=== PATIENT | female | born 1970 | race Caucasian/White ===

== ENCOUNTER 2024-08-02 11:00 | Emergency (ER) | payer OTHER ==
[2024-08-02] MEDS ORDERED: EPINEPHrine 1 MG/1 ML Amp ONE ×14 (11:02→14:29)
[2024-08-02] MEDS ORDERED: Sodium Chloride 0.9% 1,000 ML IV ONE ×5 (11:05→12:03)
[2024-08-02] MEDS ORDERED: Amiodarone/Dextrose,Iso-Osmotic 150 MG/100 ML Premix Bag IV ONE (11:06)
[2024-08-02] MEDS ORDERED: Sodium Bicarbonate 8.4% 50 MEQ/50 ML Syringe ONE ×2 (11:13→14:06)
[2024-08-02 11:32] LABS: BASOPHILS ABSOLUTE AUTO 0.1 K/mm3 (0.0-0.2); BASOPHILS PERCENT AUTO 0.5 % (0.0-1.0); EOSINOPHILS ABSOLUTE AUTO 0.1 K/mm3 (0.0-0.4); EOSINOPHILS PERCENT AUTO 0.5 % (0.0-6.0); HEMATOCRIT 37.8 % (37.0-47.0); HEMOGLOBIN 12.3 gm/dl (12.0-16.0); IMMATURE GRAN ABSOLUTE AUTO 0.35 K/mm3 (0.00-0.05); IMMATURE GRAN PERCENT AUTO 3.6 % (0.0-0.4); LYMPHOCYTES ABSOLUTE AUTO 4.7 K/mm3 (1.0-4.8); LYMPHOCYTES PERCENT AUTO 47.6 % (24.0-44.0); MEAN CORPUSCULAR HEMOGLOBIN 30.4 pg (28.0-32.0); MEAN CORPUSCULAR HGB CONC 32.5 g/dl (32.0-36.0); MEAN CORPUSCULAR VOLUME 93.6 fl (83.0-99.0); MEAN PLATELET VOLUME 9.5 fl (9.4-12.3); MONOCYTES ABSOLUTE AUTO 0.7 K/mm3 (0.0-0.8); MONOCYTES PERCENT AUTO 7.3 % (0.0-8.0); NEUTROPHILS PERCENT AUTO 40.5 % (41.0-71.0); NRBC ABSOLUTE 0.04 (0.00-0.02); NRBC PERCENT 0.4 % (0.0-0.2); PLATELET COUNT,PLT 180 K/mm3 (150-400); RED BLOOD CELL COUNT 4.04 M/mm3 (4.10-5.30); WHITE BLOOD CELL COUNT,WBC 9.81 K/mm3 (3.9-11.3)
[2024-08-02 11:36] LABS: APPEARANCE,URINE SLT CLOUDY (Clear); BILIRUBIN,URINE NEGATIVE (Negative); COLOR,URINE YELLOW (Yellow); GLUCOSE,URINE NEGATIVE (Negative); KETONES,URINE NEGATIVE (Negative); LEUKOCYTE ESTERASE,URINE NEGATIVE (Negative); NITRITE,URINE NEGATIVE (Negative); OCCULT BLOOD,URINE 1+ (Negative); PH,URINE 5.5 (5.0-8.0); PROTEIN,URINE 2+ (Negative); UROBILINOGEN,URINE 0.2 (0.2-1.0)
[2024-08-02 11:42] LABS: BARBITURATE SCREEN,URINE NEGATIVE (CUTOFF=200); BENZODIAZEPINES SCREEN,URINE PRESUMPTIVE POSITIVE (CUTOFF=150); BUPRENORPHINE SCREEN,URINE NEGATIVE (CUTOFF=10); METHADONE SCREEN, URINE PRESUMPTIVE POSITIVE (CUTOFF=200); METHAMPHETAMINES SCREEN, URINE PRESUMPTIVE POSITIVE (CUTOFF=500); OXYCODONE SCREEN,URINE PRESUMPTIVE POSITIVE (CUT0FF=100); THC SCREEN,URINE 20 NG/ML NEGATIVE (CUTOFF=50)
[2024-08-02 11:45] LABS: AMPHETAMINES SCREEN, URINE NEGATIVE (CUTOFF=500)
[2024-08-02 11:50] LABS: INR 1.21; PROTHROMBIN TIME 12.7 SECONDS (9.7-12.0)
[2024-08-02 11:51] LABS: PTT,PARTIAL THROMBOPLSTIN TIME 30.2 SECONDS (21.7-31.4)
[2024-08-02 11:53] LABS: BACTERIA,URINE FEW /hpf (FEW); RBC,URINE 0-5 /hpf (0-5)
[2024-08-02 11:54] LABS: MUCUS,URINE MODERATE /hpf (FEW)
[2024-08-02 11:58] LABS: A/G RATIO 1.3 (1-2); ALANINE AMINOTRANSFERASE,ALT 27 U/L (14-59); ALKALINE PHOSPHATASE 69 U/L (46-116); ANION GAP 8.5 (5-15); ASPARTATE AMNIOTRANSFERASE,AST 28 U/L (15-37); BILIRUBIN TOTAL 0.2 mg/dL (0.2-1.0); BLOOD UREA NITROGEN,BUN 11 mg/dL (7-18); BUN/CREATININE RATIO 9.2 (14-18); CALCIUM 8.5 mg/dL (8.5-10.1); CARBON DIOXIDE,CO2 33 mEq/L (21-32); CHLORIDE,CL 107 mEq/L (98-107); CREATININE 1.2 mg/dL (0.55-1.02); ESTIMATED GFR 54 mL/min (>60); GLUCOSE RANDOM 246 mg/dL (70-99); LIPASE 38 U/L (16-77); POTASSIUM,K 3.5 mEq/L (3.5-5.1); PROTEIN TOTAL,TP 5.4 g/dl (6.4-8.2); SODIUM,NA 145 mEq/L (136-145); TROPONIN I HIGH SENSITIVITY 6 pg/mL (<=51)
[2024-08-02 13:56] LABS: BASOPHILS ABSOLUTE AUTO 0.1 K/mm3 (0.0-0.2); BASOPHILS PERCENT AUTO 0.3 % (0.0-1.0); EOSINOPHILS ABSOLUTE AUTO 0.1 K/mm3 (0.0-0.4); EOSINOPHILS PERCENT AUTO 0.4 % (0.0-6.0); HEMATOCRIT 43.3 % (37.0-47.0); HEMOGLOBIN 13.5 gm/dl (12.0-16.0); IMMATURE GRAN ABSOLUTE AUTO 0.99 K/mm3 (0.00-0.05); IMMATURE GRAN PERCENT AUTO 5.6 % (0.0-0.4); LYMPHOCYTES ABSOLUTE AUTO 6.4 K/mm3 (1.0-4.8); LYMPHOCYTES PERCENT AUTO 36.6 % (24.0-44.0); MEAN CORPUSCULAR HEMOGLOBIN 30.6 pg (28.0-32.0); MEAN CORPUSCULAR HGB CONC 31.2 g/dl (32.0-36.0); MEAN CORPUSCULAR VOLUME 98.2 fl (83.0-99.0); MEAN PLATELET VOLUME 9.6 fl (9.4-12.3); MONOCYTES ABSOLUTE AUTO 0.8 K/mm3 (0.0-0.8); MONOCYTES PERCENT AUTO 4.8 % (0.0-8.0); NEUTROPHILS ABSOLUTE AUTO 9.2 K/mm3 (1.8-7.7); NEUTROPHILS PERCENT AUTO 52.3 % (41.0-71.0); NRBC ABSOLUTE 0.04 (0.00-0.02); NRBC PERCENT 0.2 % (0.0-0.2); PLATELET COUNT,PLT 114 K/mm3 (150-400); RED BLOOD CELL COUNT 4.41 M/mm3 (4.10-5.30); WHITE BLOOD CELL COUNT,WBC 17.59 K/mm3 (3.9-11.3)
[2024-08-02] MEDS ORDERED: Naloxone 0.4 MG/ML SDV ONE (13:57)
[2024-08-02 14:21] LABS: SLIDE REVIEW ABNORMAL SMEAR
[2024-08-02] MEDS ORDERED: Vasopressin 100 UNIT in Dextrose 5% in Water 245 ML IV SCH (14:30)
[2024-08-02 14:31] LABS: A/G RATIO 1.1 (1-2); ALANINE AMINOTRANSFERASE,ALT 97 U/L (14-59); ALBUMIN 2.3 g/dl (3.4-5.0); ALKALINE PHOSPHATASE 74 U/L (46-116); BILIRUBIN TOTAL 0.4 mg/dL (0.2-1.0); BLOOD UREA NITROGEN,BUN 12 mg/dL (7-18); BUN/CREATININE RATIO 9.2 (14-18); CALCIUM 7.9 mg/dL (8.5-10.1); CARBON DIOXIDE,CO2 20 mEq/L (21-32); CHLORIDE,CL 112 mEq/L (98-107); CREATININE 1.3 mg/dL (0.55-1.02); ESTIMATED GFR 49 mL/min (>60); GLUCOSE RANDOM 232 mg/dL (70-99); PROTEIN TOTAL,TP 4.5 g/dl (6.4-8.2); SODIUM,NA 149 mEq/L (136-145); TROPONIN I HIGH SENSITIVITY 37 pg/mL (<=51)
[2024-08-02 14:37] LABS: ASPARTATE AMNIOTRANSFERASE,AST 120 U/L (15-37)
[2024-08-02 15:48] LABS: BASE EXCESS ARTERIAL -17.5 (-2-2.0); BICARBONATE,ARTERIAL 15.7 meq/L (22.0-26.0); O2 SATURATION ARTERIAL 94.8 % (96.0-97.0)
[2024-08-02] MEDS ORDERED: Lactated Ringers 1,000 ML IV ONE (16:15)
[2024-08-02] MEDS: Sodium Bicarbonate 8.4% 50 MEQ/50 ML Syringe IVPUSH ONE (16:40)
[2024-08-02] MEDS: Piperacillin/Tazobactam 4.5 GM in Sodium Chloride 0.9% 100 ML IV ONE (17:00)
[2024-08-02] MEDS: EPINEPHrine 1 MG in Dextrose 5% in Water 99 ML IV SCH (17:00)
[2024-08-02] MEDS: VANCOmycin 1.25 GM/250 ML 1.25 GM in Premix Bag 1 BAG IV ONE (17:00)
[2024-08-02 17:12] LABS: MAGNESIUM 2.5 mg/dL (1.8-2.4)
[2024-08-02] MEDS: EPINEPHrine 1 MG/ML SDV ONE (18:02)
[2024-08-02] MEDS: Dextrose 5% in Water 100 ML ONE (18:02)
[2024-08-02] MEDS: Sodium Bicarbonate 8.4% 50 MEQ/50 ML Syringe ONE (18:02)
[2024-08-02] MEDS: Sodium Chloride 0.9% 500 ML ONE (18:03)
[2024-08-02 18:04] LABS: BASE EXCESS ARTERIAL -16.7 (-2-2.0); BICARBONATE,ARTERIAL 14.3 meq/L (22.0-26.0); O2 SATURATION ARTERIAL 96.9 % (96.0-97.0)
== END 2024-08-02 17:21 ==
LOC: JD.ED 11:00
DX: T45.0X1A Poisoning by antiallergic and antiemetic drugs, accidental (unintentional), initial encounter (principal); I46.9 Cardiac arrest, cause unspecified; T68.XXXA Hypothermia, initial encounter
CPT/HCPCS: 36415; 36556; 36600; 51700; 71045; 80053; 80143; 80179; 80306; 80307; 81001; 82803; 82947; 83605; 83690; 83735; 84484; 84702; 85025; 85610; 85730; 92950; 93005; 96365; 96368; 96375; 99291; 99292; C1751; J0171; J0283; J2310; J2543; J3372; J7030; J7060; J7120; 93010; J3490